=== PATIENT | female | born 1945 | race Caucasian/White ===

== ENCOUNTER 2018-08-08 05:37 | Day surgery (SDC) | payer MEDICARE, OTHER ==
[2018-08-08] VITALS (11 sets, daily range): BP systolic 97–163; BP diastolic 58–87; PULSE 94–100; RESP 11–24; Ht 160 cm; Wt 69.4 kg
[~2018-08-08] VITALS: Ht 160 cm; Wt 69.4 kg
[2018-08-08] MEDS ORDERED: LIDOCAINE 2% (SDV) 5 ML INJ ONE (06:17)
[2018-08-08] MEDS ORDERED: GLYCOPYRROLATE 0.4 MG INJ ONE (06:17)
[2018-08-08] MEDS ORDERED: ROCURONIUM 50 MG INJ ONE (06:17)
[2018-08-08] MEDS ORDERED: NEOSTIGMINE 3 MG/3 ML SYRINGE ONE (06:17)
[2018-08-08] MEDS ORDERED: PROPOFOL 20 ML ONE (06:17)
[2018-08-08] MEDS ORDERED: FENTAnyl 50 MCG/ML VIAL ONE (06:18)
[2018-08-08] MEDS ORDERED: ONDANSETRON 4 MG INJ ONE (06:18)
[2018-08-08] MEDS ORDERED: DEXAMETHASONE 4 MG/ML 5 ML INJ ONE (06:18)
[2018-08-08] MEDS ORDERED: MIDAZOLAM 1 MG/ML 2 ML INJ ONE (06:18)
[2018-08-08] MEDS ORDERED: ROPIVACAINE 0.5 % 30 ML VIAL ONE ×2 (06:25→06:57)
[2018-08-08] MEDS ORDERED: METHYLENE BLUE 1% 10 ML INJ ONE (06:58)
[2018-08-08] MEDS ORDERED: POVIDONE IODINE 10% 28.4 GM OINT ONE (06:58)
[2018-08-08] MEDS ORDERED: POLYMYXIN/BACITRACIN 1L IRRIG ONE ×2 (06:58→10:33)
[2018-08-08] MEDS ORDERED: SEVOFLURANE 15 MIN ONE (07:00)
[2018-08-08] MEDS ORDERED: VANCOMYCIN 1 GM (PMX) 250 ML IVPB ONE (07:00)
--- NOTE | 2018-08-08 07:29 | PREAC ---
Date/Time of Note Date/Time of Note DATE: 08/08/18 TIME: 07:24 Anesthesia Eval and Record Evaluation Time Pre-Procedure Interview DATE: 08/08/18 TIME: 07:24 Age 72 Sex female NPO: 8 hrs Preoperative diagnosis Bunion Right Foot Planned procedure Right Foot Bunionectomy With Osteotomy And Pinning Past Medical History Past Medical History: Includes Cardio: Other Endo: Other Pulm: Other Neuro: Other Musculoskeletal: Other Renal: Other Hepatic: Other GI: Other Heme: Other Psych: Other Recreational drugs: Other : Other Surgery & Anesthesia Issues Aspiration risk Meds Anticoagulation: No Beta Haylee within 24 hr: No Reason Beta Haylee not given: Pt. not on B-Haylee No Active Prescriptions or Reported Meds Current Medications Vancomycin HCl 250 ml @ 125 mls/hr ONCE ONCE IVPB Last administered on 08/08/18at 06:50; Admin Dose 125 MLS/HR; Start 08/08/18 at 07:00; Stop 08/08/18 at 08:59 Meds reviewed: Yes Allergies Coded Allergies: cephalexin (Verified Allergy, Unknown, colitis, 08/08/18) aspirin (Verified Adverse Reaction, Unknown, upset stomach, 08/08/18) Allergies Reviewed: Yes Labs/Studies Labs Reviewed: Reviewed by anesthesiologist test: N/A Studies: ECG, CXR Pre-procedure Exam Last vitals Vital Signs Date Temp Pulse Resp B/P (MAP) Pulse Ox O2 O2 Flow FiO2 Time Delivery Rate 08/08/18 98.1 95 18 163/87 100 Room Air 06:08 (112) Airway: Adequate mouth opening Mallampati: Mallampati I Teeth: Normal Lung: Normal Heart: Normal Anticipated Difficutly with IV: Anticipate Difficult IV Access ASA Physical Status ASA physical status: 1 Emergency: None Planned Anesthetic General/MAC: ETT Neuraxial: Other Nerve block: Sciatic Planned Pain Management Single shot nerve block, Local by surgeon Pre-operative Attestations Prior to commencing anesthesia and surgery, the patient was re-evaluated, there was verification of: *The patient's identity *The results of appropriate recent lab work and preoperative vital signs *The above evaluation not changing prior to induction *Anesthetic plan, risk benefits, alternative and complications discussed with patient/family; questions answered; patient/family understands, accepts and wishes to proceed. GERRI BEGUM MD Aug 08, 2018 07:29
[2018-08-08] MEDS ORDERED: LABETALOL HCL 20MG INJ ONE (10:54)
--- NOTE | 2018-08-08 11:05 | NUR ---
PACU: Recieved patient in pacu via [facility] s/p Right foot bunionectomy, vss HOB @ semi flores position breathing with ease, right foot dressing dry & intact foot elevated w/ foam wedge, cap refill <3sec, warm to touch, toes can not move but sensation is there, c/o pain, phoned fiancee & given him update, will continue to monitor.
--- NOTE | 2018-08-08 11:21 | PAC ---
Date/Time of Note Date/Time of Note DATE: 08/08/18 TIME: 11:21 Post-Anesthesia Notes Post-Anesthesia Note Last documented vital signs Vital Signs Date Temp Pulse Resp B/P (MAP) Pulse Ox O2 O2 Flow FiO2 Time Delivery Rate 08/08/18 98.1 95 18 163/87 100 Room Air 06:08 (112) Activity: WNL Respiratory function: WNL Cardiovascular function: WNL Mental status: Baseline Pain reasonably controlled: Yes Hydration appropriate: Yes Nausea/Vomiting absent: Yes SELMA CABRAL Aug 08, 2018 11:21
[2018-08-08] MEDS ORDERED: hydrALAzine 20 MG INJ IV PRN (11:30)
[2018-08-08] MEDS ORDERED: MEPERIDINE 25 MG INJ IV PRN (11:30)
[2018-08-08] MEDS ORDERED: HYDROmorphONE 1 MG/5 ML IV SYRINGE IV PRN ×3 (11:30)
[2018-08-08] MEDS ORDERED: DIPHENHYDRAMINE 50 MG INJ IV PRN (11:30)
[2018-08-08] MEDS ORDERED: EPHEDrine SULFATE 50 MG/5 ML SYG IV PRN (11:30)
[2018-08-08] MEDS ORDERED: LABETALOL HCL 20MG INJ IV PRN (11:30)
[2018-08-08] MEDS ORDERED: ONDANSETRON 4 MG INJ IV PRN ×2 (11:30→12:00)
[2018-08-08] MEDS ORDERED: FENTAnyl 50 MCG/ML VIAL IV PRN ×2 (11:30)
[2018-08-08] MEDS ORDERED: MIDAZOLAM 1 MG/ML 2 ML INJ IV PRN (11:30)
[2018-08-08] MEDS: FENTAnyl 50 MCG/ML VIAL IV PRN ×2 (11:41→11:50)
--- NOTE | 2018-08-08 11:41 | PAC ---
Date/Time of Note Date/Time of Note DATE: 08/08/18 TIME: 11:41 Post-Anesthesia Notes Post-Anesthesia Note Last documented vital signs Vital Signs Date Temp Pulse Resp B/P (MAP) Pulse Ox O2 O2 Flow FiO2 Time Delivery Rate 08/08/18 98.1 95 18 163/87 100 Room Air 06:08 (112) Activity: WNL Respiratory function: WNL Cardiovascular function: WNL Mental status: Baseline Pain reasonably controlled: Yes Hydration appropriate: Yes Nausea/Vomiting absent: No GERRI BEGUM MD Aug 08, 2018 11:41
--- NOTE | 2018-08-08 11:43 | OPPN ---
Date/Time of Note Date/Time of Note DATE: 08/08/18 TIME: 11:41 Operative Report Preoperative Diagnosis Right hallux valgus 1st metatarsal Right 5th metatarsal, bunionette Postoperative Diagnosis right hallux valgus right 5th metatarsal bunionette Operation/Procedure Performed Right hallux valgus correction with proximal crescentic osteotomy and distal medial prominence resection and soft tissue procedure with internal fixation Right 5th metatarsal bunionette with distal chevron osteotomy and pin fixation Surgeon see signature line engineer first assistant Dell Joshi MD Second assist: JOSE MAHAN Anesthesia: general Estimated blood loss: minimal Transfusion Required none Specimen Synovial fluid with first MT joint Grafts/Implants none Complications none MAGGIE CASTLE MD Aug 08, 2018 11:43
[2018-08-08] MEDS ORDERED: SOD CHLORIDE 0.9% 1,000 ML IV SCH (11:53)
[2018-08-08] MEDS ORDERED: OXYCODONE/ACETAMINOPHEN (5/325) TAB PO PRN ×2 (12:00)
[2018-08-08] MEDS ORDERED: morphine 2 MG INJ IV PRN (12:00)
--- NOTE | 2018-08-08 12:07 | NUR ---
PACU: Transferred patient to [facility] via [facility] vss AAOx4 HOB @ semi flores position breathing with ease, right foot dressing dry & intact foot elevated w/ foam wedge, cap refill <3sec, warm to touch, toes can not move but sensation is present, given pain medications for comfort, pain tolerable, Report given to MIRTHA pinedo
--- NOTE | 2018-08-08 13:58 | OPR ---
DATE OF OPERATION: 08/08/2018 PREOPERATIVE DIAGNOSES: 1. Severe right hallux valgus and bunion. 2. Right moderate 5th metatarsophalangeal joint bunionette. POSTOPERATIVE DIAGNOSES: 1. Severe right hallux valgus and bunion. 2. Right moderate metatarsophalangeal joint bunionette. OPERATION PERFORMED: 1. Right great toe bunionectomy with limited lateral release. 2. Proximal metatarsal crescentic osteotomy with 4.0 mm screw and 0.062 K-wire fixation. 3. Medial capsulodesis. 4. Local bone graft to the osteotomy site. 5. Right fifth MTP bunionectomy. 6. Distal metatarsal Chevron osteotomy with 0.045 pin fixation. 7. Lateral capsulodesis. 8. Use of fluoroscopy to verify position and alignment of the bunionette and hardware. CLERK OF COURT: Shilpa Small. SECOND GLOBAL SAFETY OFFICER: VY Wiley ANESTHESIA: General with popliteal block. TOURNIQUET TIME: 1. 84 minutes. 2. 41 minutes. DESCRIPTION OF PROCEDURE: The patient was taken to operating room and placed in supine position. Sa tisfactory popliteal block was given. Satisfactory general anesthesia administered, 1 gram of vancom ycin given intravenously. Right foot was prepped and draped in usual manner. Our attention was turn ed first to the great toe. Dorsomedial incision was made, dissection carried down through subcutaneous tissue. Neurovascular bu ndles were elevated plantarly and dorsally. A U-shaped capsular flap was made and retracted with 3-0 undyed Vicryl. The patient had a moderate to severe bunion with some very strange gelatinous materi al in the joint. This was sent for culture and sensitivity, cell count and crystals. Reciprocating saw was used to perform a bunionectomy just medial to the groove of Rell and the bunion was saved fo r later bone grafting. The patient had significant generalized ligamentous laxity and a minimal limi reinaldo lateral release was performed under direct vision reaching across the joint. A power rasp was us ed to smooth the metatarsal head and the shaft. Wounds irrigated with antibiotic solution and then s uture was used to close the incision temporarily. A longitudinal incision was made centered over the tarsometatarsal joint of the first toe. Dissectio n carried down to subcutaneous tissue. Extensor hallucis longus and brevis were retracted. One cm d istal to the joint a circular shilpa was made on the periosteum with electrosurgery and marked with met valdez blue with the rotation shilpa; 2.5 cm distal to the metatarsal base a shilpa was made for the scre w insertion. A 4.0 mm AO cannulated guide pin was inserted just medial to the center of the bone. A hole was drilled, cortex and then countersunk. Crescentic osteotomy was then performed with the aislinn rter and then the longer blade. It was then rotated 3 to 4 mm, fixated with 0.062 K-wire across the osteotomy dorsally. This was checked in the AP plane and looked to be excellent with excellent corre ction of the intermetatarsal angle. Guide pin was then inserted in the correct position, checked in the AP and lateral planes, length was measured 20 mm. A 20 mm screw was then inserted. Excellent fi xation was obtained. Final fluoroscopic view with the guide pin removed showed good position and ali gnment of the screw and a K-wire. Excellent correction of the bunion. Drill hole was then made more proximal metatarsal shaft and O Tycron placed through the drill holes and this was weaved through th e capsule and the abductor tendon. The toe was tied in slight overcorrection. Because of her signif icant generalized laxity, we overcorrected her knowing that she is going to stretch out. The rest of the capsule was closed with 3-0 PDS, 4-0 undyed Vicryl was used to close over the screw dorsally in the wound. The tourniquet was released, bleeders were coagulated, wounds irrigated with antibiotic s olution repeatedly. The skin in both incisions was then closed with 5-0 black nylon. After waiting 25 minutes, while we did the closure we elected to put the tourniquet up again for the 5th toe. A do rsal lateral incision was made, dissection carried down to the capsule. A U-shaped capsular flap was then made. The bunionette was fairly large. The bunionette was excised with an oscillating saw and with a reciprocating saw, a distal metatarsal Chevron osteotomy was performed and shifted 2 to 3 mm, fixated with a 0.045 K-wire. The remaining prominence was removed with a bur and then a power rasp and a drill hole made more proximally in the metatarsal shaft; 0 Tycron placed through the bone and t hen weaved through the capsule. Capsule was closed with the toe in slight valgus and then reinforced with 3-0 PDS. Tourniquet was released, bleeders were coagulated, wounds were irrigated with antibio tic solution. The skin was closed with 5-0 black nylon. Saphenous nerve block done with 0.5% Rupiva estefanía. Compression dressing applied. The patient was placed in a postop shoe and brought to recover y room in stable condition. Interprocedure sponge and needle count was correct. Patient tolerated p rocedure well. GLOBAL SAFETY OFFICER ORTHOPEDIC SURGEON: During the procedure, marketing operations assistant orthopedic surgeon was used at my requ est. The marketing operations assistant surgeon helped with retraction, but most importantly, the marketing operations assistant surgeon was p utting the K-wire wires and the screw while I held the first and fifth toes reduced. Without a skill ed surgeon assisting me, this could not have been done and they should be compensated appropriately. Dictated By: MAGGIE MARTINEZ/MARJORIE Conf#: [id number] DID#: [id number]
--- NOTE | 2018-08-08 14:27 | NUR ---
MEDICATED FOR C/O POST OP PAIN LEVEL 4/10
== END 2018-08-08 15:14 | disposition home or self-care (01) ==
LOC: SDS 05:37
PROVIDERS: ATTEND Orthopaedic Surgery
DX: M20.11 Hallux valgus (acquired), right foot (principal); M21.611 Bunion of right foot
CPT/HCPCS: 28295; 28296; 73630; 87070; 87075; C1713; J1100; J1170; J2175; J2250; J2405; J2710; J2795; J3010; J3370